=== PATIENT | female | born 1990 | race Caucasian/White ===

== ENCOUNTER → 2018-12-19 08:15 | Outpatient (CLI) | payer SELFPAY ==
--- NOTE | 2018-12-19 08:25 | CT_ITS ---
PROCEDURE: CT HEART W CALCIUM SCORE CLINICAL HISTORY: SCREENING, HTN, ABN STRESS I COMPARISON: No exams were available for comparison TECHNIQUE: Axial images obtained with sagittal and coronal reformats. All CT scans at the facility use one or more dose reduction, viz: automated exposure control, ma/kV adjustment per patient size (including targeted exams where dose is matched to indication, i.e. head), or iterative reconstruction technique. FINDINGS: The coronary artery calcium score is 0 indicating no identifiable atherosclerotic plaque with very low cardiovascular disease risk. Incidental findings include degenerative changes of the thoracic spine. Small parenchymal opacity is present in the right upper lobe posteriorly and in the left lower lobe posteriorly of questionable clinical significance. May only be related to vascular crowding from low lung volumes. IMPRESSION: No identifiable calcified atherosclerotic plaque with very low cardiovascular disease risk Dictated by: Pj Nava MD 12/19/2018 10:59 Electronically signed by Pj Nava MD in [place] 12/19/2018 10:59
== END ==
PROVIDERS: PCP Family Medicine; Visit Provider Internal Medicine Cardiovascular Disease
DX: Z13.6 Encounter for screening for cardiovascular disorders (principal)
CPT/HCPCS: 75571